=== PATIENT | female | born 1995 | race Two or more races ===

== ENCOUNTER 2020-03-19 14:58 | Observation (INO) | payer MEDICAID ==
[~2020-03-19 14:58] MED LIST: PREN-96 PO
[2020-03-19 17:17] LABS: Basophils # (auto) 0 10 ^3/uL (0-0.2); Basophils % (auto) 0.5 % (0.0-2.0); Eosinophils # (auto) 0 10 ^3/uL (0-0.8); Eosinophils % (auto) 0.6 % (0.0-7.0); Hematocrit 33.8 % (36.0-46.0); Hemoglobin 11.5 g/dL (12.2-16.2); Lymphocytes # (auto) 1.1 10 ^3/uL (0.4-5.4); Lymphocytes % (auto) 17.5 % (10.0-50.0); Mean Corpuscular Hgb Conc. 33.9 g/dL (32.0-36.0); Mean Corpuscular Volume 85.6 fL (80.0-100.0); Monocytes # (auto) 0.4 10 ^3/uL (0-1.3); Monocytes % (auto) 6.2 % (0.0-12.0); Neutrophils # (auto) 4.5 10 ^3/uL (1.6-8.6); Neutrophils % (auto) 75.2 % (37.0-80.0); Nucleated Red Blood Cells % 0.1 %; Platelet Count (auto) 217 10^3/uL (140-450); Red Blood Cells 3.95 10^6/uL (4.0-5.20)
[2020-03-20 07:06] LABS: RPR Non Reactive (Non Reactive)
[2020-03-20 08:06] LABS: Rubella Antibodies, IgG 8.04 index (Immune >0.99)
== END 2020-03-19 17:20 | disposition home or self-care (01) ==
LOC: LDRP 14:58
PROVIDERS: ADMIT Obstetrics & Gynecology; ATTEND Obstetrics & Gynecology
DX: O42.92 Full-term premature rupture of membranes, unspecified as to length of time between rupture and onset of labor (principal); Z3A.38 38 weeks gestation of pregnancy
CPT/HCPCS: 36415; 59025; 76805; 81002; 84112; 85025; 86592; 86703; 86762; 86850; 86900; 86901; 87340; 87491; 87591; G0378; Q0114

== ENCOUNTER 2020-03-22 13:06 | Observation (INO) | payer MEDICAID | END 2020-03-22 14:30 | disposition home or self-care (01) | LOC: LDRP 13:06 | PROVIDERS: ADMIT Obstetrics & Gynecology; ATTEND Obstetrics & Gynecology | DX: O36.5930 Maternal care for other known or suspected poor fetal growth, third trimester, not applicable or unspecified (principal); Z3A.38 38 weeks gestation of pregnancy | CPT/HCPCS: 59025; 76818; 81002; G0378 ==

== ENCOUNTER 2020-03-25 13:04 | Observation (INO) | payer MEDICAID | END 2020-03-25 16:05 | disposition home or self-care (01) | LOC: LDRP 13:04 | PROVIDERS: ADMIT Obstetrics & Gynecology; ATTEND Obstetrics & Gynecology | DX: O36.5930 Maternal care for other known or suspected poor fetal growth, third trimester, not applicable or unspecified (principal); Z3A.39 39 weeks gestation of pregnancy | CPT/HCPCS: 59025; 76818; 81002; G0378 ==

== ENCOUNTER → 2020-03-26 | Outpatient (CLI) | payer MEDICAID ==
[2020-03-26 11:07] LABS: Alcohol, Urine < 3.0 mg/dL (0-10); Amphetamine Screen, Urine NEGATIVE (NEGATIVE); Barbiturate Scree,Urine NEGATIVE (NEGATIVE); Benzodiazephine Screen, Urine NEGATIVE (NEGATIVE); Cannabinoid Screen, Urine NEGATIVE (NEGATIVE); Cocaine Screen, Urine NEGATIVE (NEGATIVE); Opiate Scree,Urine NEGATIVE (NEGATIVE); Phencyclidine Screen, Urine NEGATIVE (NEGATIVE)
[2020-03-27 06:06] LABS: RPR Non Reactive (Non Reactive)
== END | disposition home or self-care (01) ==
LOC: LAB 10:18
PROVIDERS: ATTEND Obstetrics & Gynecology
DX: Z34.93 Encounter for supervision of normal pregnancy, unspecified, third trimester (principal); Z20.2 Contact with and (suspected) exposure to infections with a predominantly sexual mode of transmission; Z3A.39 39 weeks gestation of pregnancy
CPT/HCPCS: 36415; 80307; 86592; 86762; 86850; 87086; 87340

== ENCOUNTER 2020-03-28 13:39 | Inpatient (IN) | payer MEDICAID ==
[~2020-03-28] VITALS: Ht 156 cm; Wt 70.3 kg
[2020-03-28] MEDS ORDERED: LACT. RINGERS/OXYTOCIN 20UNITS 1,000 ML IV ONE (15:00)
[2020-03-28] MEDS ORDERED: WITCH HAZEL-GLYCERIN PAD TOP PRN (15:00)
[2020-03-28] MEDS ORDERED: METHYLERGONOVINE MALEATE 0.2 MG/ML AMP IM PRN (15:00)
[2020-03-28] MEDS ORDERED: BUTORPHANOL TARTRATE 2 MG/1 ML VIAL IV PRN ×2 (15:00)
[2020-03-28] MEDS ORDERED: DERMOPLAST 60ML BOTTLE TOP PRN (15:00)
[2020-03-28] MEDS ORDERED: PROMETHAZINE HCL 25 MG/ML 1ML IV PRN (15:00)
[2020-03-28] MEDS ORDERED: PHISODERM TOP SOLN 240ML BTL TOP PRN (15:00)
[2020-03-28] MEDS ORDERED: CARBOPROST TROMETHAMINE 250 MCG/1ML VIAL IM PRN (15:00)
[2020-03-28] MEDS ORDERED: miSOPROStol 50 MCG per PRE-CUT 1/2 TAB PO PRN (15:00)
[2020-03-28 15:44] LABS: Basophils # (auto) 0 10 ^3/uL (0-0.2); Basophils % (auto) 0.4 % (0.0-2.0); Eosinophils # (auto) 0 10 ^3/uL (0-0.8); Eosinophils % (auto) 0.6 % (0.0-7.0); Hemoglobin 12.5 g/dL (12.2-16.2); Lymphocytes # (auto) 1.2 10 ^3/uL (0.4-5.4); Lymphocytes % (auto) 16.5 % (10.0-50.0); Mean Corpuscular Hemoglobin 29.1 pg (28.0-32.0); Mean Corpuscular Hgb Conc. 33.8 g/dL (32.0-36.0); Monocytes # (auto) 0.5 10 ^3/uL (0-1.3); Monocytes % (auto) 6.4 % (0.0-12.0); Neutrophils # (auto) 5.5 10 ^3/uL (1.6-8.6); Neutrophils % (auto) 76.1 % (37.0-80.0); Nucleated Red Blood Cells % 0.1 %; Red Cell Distribution Width 14.2 % (11.8-14.3); White Blood Cell 7.2 10^3/uL (4.4-10.8)
[2020-03-28 15:58] LABS: INR 0.89 (0.9-1.15)
[2020-03-28] MEDS ORDERED: PENICILLIN G POT 5MIL/D5 50ML 50 ML IV ONE (16:00)
[2020-03-28] MEDS: LACTATED RINGER'S 1,000 ML IV SCH ×3 (16:03→23:17)
[2020-03-28 16:05] LABS: Albumin 2.8 g/dL (3.4-5.0); BUN/Creatinine Ratio 12.7; Calcium 8.8 mg/dL (8.5-10.1)
[2020-03-28 16:08] LABS: Bilirubin, Total 0.3 mg/dL (0.2-1.0); Total Protein 7.1 g/dL (6.4-8.2)
[2020-03-28 16:15] LABS: Urine Bacteria FEW /hpf (None Seen); Urine Blood Negative /uL (Negative); Urine Hyaline Cast FEW /lpf (0 - 2); Urine Mucus FEW (None Seen); Urine Specific Gravity 1.018 (1.001-1.035); Urine WBC 2 /hpf (0 - 5)
[2020-03-28 16:23] LABS: Alcohol, Urine < 3.0 mg/dL (0-10); Amphetamine Screen, Urine NEGATIVE (NEGATIVE); Barbiturate Scree,Urine NEGATIVE (NEGATIVE); Benzodiazephine Screen, Urine NEGATIVE (NEGATIVE); Cannabinoid Screen, Urine NEGATIVE (NEGATIVE); Cocaine Screen, Urine NEGATIVE (NEGATIVE); Opiate Scree,Urine NEGATIVE (NEGATIVE); Phencyclidine Screen, Urine NEGATIVE (NEGATIVE)
[2020-03-28] MEDS: LIDOCAINE 2%HCL (LOCAL ANESTH.) INJ 20ML MDV IJ PRN (18:48)
[2020-03-28] MEDS: PENICILLIN G POTASSIUM 2,500,000 UNITS in D5W 5% 50 ML IV SCH (19:50)
[2020-03-28] MEDS ORDERED: NALOXONE HCL 0.4 MG/ML VIAL IV ONE (21:00)
[2020-03-28] MEDS ORDERED: ROPIVACAINE HCL 200 ML EPI SCH (21:00)
[2020-03-28] MEDS ORDERED: ePHEDrine SULFATE 50 MG/ML AMP IV ONE ×2 (21:00→22:00)
[2020-03-28] MEDS ORDERED: fentaNYL CITRATE 100 MCG/2 ML VL IV ONE (21:00)
[2020-03-28] MEDS ORDERED: LACT. RINGERS/OXYTOCIN 20UNITS 1,000 ML IV SCH (21:15)
[2020-03-28] MEDS ORDERED: ePHEDrine SULFATE 50 MG/ML AMP ONE (21:52)
[2020-03-29] VITALS (8 sets, daily range): BP systolic 95–113; BP diastolic 55–72
[2020-03-29] MEDS: PENICILLIN G POTASSIUM 2,500,000 UNITS in D5W 5% 50 ML IV SCH (00:20)
[2020-03-29] MEDS ORDERED: LACT. RINGERS/OXYTOCIN 20UNITS 1,000 ML IV ONE (00:45)
[2020-03-29] MEDS ORDERED: ceFAZolin 2 GM in D5W 5% 100 ML IV ONE (01:30)
[2020-03-29] MEDS ORDERED: ceFAZolin 1GM/50ML 50 ML IV ONE ×2 (02:00)
[2020-03-29 04:06] LABS: RPR Non Reactive (Non Reactive)
[2020-03-29] MEDS ORDERED: miSOPROStol 100 mcg TAB ONE (05:32)
[2020-03-29] MEDS ORDERED: CARBOPROST TROMETHAMINE 250 MCG/1ML VIAL IM ONE (05:32)
[2020-03-29] MEDS ORDERED: ONDANSETRON HCL 4 MG/2 ML VIAL ONE (05:33)
[2020-03-29] MEDS ORDERED: ONDANSETRON HCL 4 MG/2 ML VIAL IV PRN (05:45)
[2020-03-29] MEDS ORDERED: METHYLERGONOVINE MALEATE 0.2 MG/ML AMP IM PRN (05:45)
[2020-03-29] MEDS: DIPHENOXYLATE W/ATROPINE 2.5 MG TAB PO SCH ×2 (05:48→22:27)
[2020-03-29] MEDS: CARBOPROST TROMETHAMINE 250 MCG/1ML VIAL IM PRN ×2 (05:55→05:59)
[2020-03-29] MEDS ORDERED: NALBUPHINE HCL 10 MG/1ml INJECTION IM PRN (06:45)
[2020-03-29] MEDS ORDERED: BUTORPHANOL TARTRATE 2 MG/1 ML VIAL IM PRN (07:30)
[2020-03-29] MEDS: ceFAZolin 1GM/50ML 50 ML IV SCH ×2 (10:54→18:22)
[2020-03-29] MEDS: IBUPROFEN 600 MG TAB PO PRN ×2 (14:27→19:29)
[2020-03-29] MEDS: LIDOCAINE 2%HCL (LOCAL ANESTH.) INJ 20ML MDV IJ PRN (21:45)
[2020-03-30] MEDS: ALUM & MAG HYDROX-SIMETH LIQ(MAALOX) 30 ML PO PRN ×2 (00:23→05:42)
[2020-03-30] MEDS: ceFAZolin 1GM/50ML 50 ML IV SCH ×2 (02:47→10:06)
[2020-03-30 03:00] VITALS: BP 110/60
[2020-03-30 07:30] VITALS: BP 99/55
[2020-03-30 11:00] VITALS: BP 97/51
[2020-03-30] MEDS: IBUPROFEN 600 MG TAB PO PRN (11:21)
== END 2020-03-30 13:28 | disposition home or self-care (01) | DRG 560 ==
LOC: LDRP 13:39 → OBSVTOIN 14:50 → LDRP 15:11
PROVIDERS: ADMIT Obstetrics & Gynecology; ATTEND Obstetrics & Gynecology
PROC: 3E0R3BZ Introduction of Anesthetic Agent into Spinal Canal, Percutaneous Approach (ICD-10-PCS; 2020-03-28)
PROC: 00HU33Z Insertion of Infusion Device into Spinal Canal, Percutaneous Approach (ICD-10-PCS; 2020-03-28)
PROC: 0U7C7ZZ Dilation of Cervix, Via Natural or Artificial Opening (ICD-10-PCS; 2020-03-28)
PROC: 10E0XZZ Delivery of Products of Conception, External Approach (ICD-10-PCS; principal; 2020-03-29)
PROC: 0KQM0ZZ Repair Perineum Muscle, Open Approach (ICD-10-PCS; 2020-03-29)
DX: O76 Abnormality in fetal heart rate and rhythm complicating labor and delivery (principal); O36.5930 Maternal care for other known or suspected poor fetal growth, third trimester, not applicable or unspecified; Z20.822 Contact with and (suspected) exposure to COVID-19; O70.1 Second degree perineal laceration during delivery; Z37.0 Single live birth; Z3A.39 39 weeks gestation of pregnancy
CPT/HCPCS: 36415; 59025; 59200; 59409; 62282; 76818; 80053; 80307; 81001; 81002; 85025; 85610; 85730; 86592; 86850; 86900; 86901; 87426; 96360; 96361; 96365; 96366; G0378; J0690; J2405; J2540; J2590; J7060